=== PATIENT | male | born 1955 | race Caucasian/White ===

== ENCOUNTER → 2018-02-13 | Outpatient (REF) | payer MEDICARE ==
[2018-02-18 08:06] LABS: L PNEUMOPHILIA 1-6 IgG <1:128 (<1:128)
[2018-02-18 08:06] LABS: CHLAMYDIA PNEUMONIAE IgM <1:10 (Neg:<1:10); L PNEUMOPHILIA 1-6 IgM < 1:16 (< 1:16); MYCOPLASMA PNEUMONIAE IgG <100 U/mL (0-99); MYCOPLASMA PNEUMONIAE IgM <770 U/mL (0-769)
== END ==
LOC: M LAB REF 12:49
DX: R06.2 Wheezing (principal)
CPT/HCPCS: 86713